=== PATIENT | male | born 1985 | race Caucasian/White ===

== ENCOUNTER 2023-12-07 23:18 | Emergency (ER) | payer BC ==
[~2023-12-07] VITALS: Ht 180.3 cm; Wt 99.8 kg
[2023-12-07] MEDS ORDERED: IBUPROFEN 600 MG TABLET ONE (23:52)
[2023-12-07] MEDS: IBUPROFEN 600 MG TABLET PO ONE (23:53)
[2023-12-07] MEDS ORDERED: FLUV50TA3 PO (23:57)
[2023-12-08] MEDS ORDERED: ONDA4TAB11 PO (00:22)
[2023-12-08] MEDS ORDERED: HYDR-3980 PO (00:22)
[2023-12-08 00:41] VITALS: BP 124/70; TEMP 98; O2SAT 99
== END 2023-12-08 00:41 | disposition home or self-care (01) ==
LOC: ER 23:24
DX: S52.531A Colles' fracture of right radius, initial encounter for closed fracture (principal); S52.691A Other fracture of lower end of right ulna, initial encounter for closed fracture; Z79.899 Other long term (current) drug therapy; W01.0XXA Fall on same level from slipping, tripping and stumbling without subsequent striking against object, initial encounter; Y93.89 Activity, other specified; Y92.89 Other specified places as the place of occurrence of the external cause; Y99.8 Other external cause status
CPT/HCPCS: 73090; 73110; A4606; A4663